=== PATIENT | male | born 1985 | race Two or more races ===

== ENCOUNTER 2022-12-31 10:14 | Outpatient (CLI) | payer OTHER | END 2022-12-31 10:25 | disposition home or self-care (01) | LOC: SONOGRAMA 10:14 | PROVIDERS: ATTEND Physical Medicine & Rehabilitation | DX: G65.0 Sequelae of Guillain-Barre syndrome (principal); M70.031 Crepitant synovitis (acute) (chronic), right wrist; M72.2 Plantar fascial fibromatosis ==